=== PATIENT | male | born 1945 | race Caucasian/White ===

== ENCOUNTER 2017-10-30 09:32 | Outpatient (CLI) | payer MEDICARE, MEDICAID ==
--- NOTE | 2017-10-30 12:12 | CT ---
LOW DOSE SCREENING LUNG CT: Date: 10/30/17 COMPARISON: 04/25/16. HISTORY: Current smoker with a 60+ year history of smoking. COPD and shortness of breath. TECHNIQUE: Noncontrast low dose CT is performed following department protocol. FINDINGS: Lung-RADS Specific: Negative. Stable 4.0 mm nodule in the left upper lobe. Potential Significant Incidentals (Lung-RADS Category S): There is scarring in both upper lobes. The re is stable, slightly irregular nodules in the superior segment of the left lower lobe, unchanged. N odules measure 0.9 cm and 0.6 cm in maximum dimension. There has been no significant change when comp ared to the examination from April 2016. Other Incidentals: Coronary artery calcifications are identified. IMPRESSION: 1. Lung-RADS Category 1 - Negative. No evidence of primary lung cancer. Stable nodule in the left up per lobe. 2. Lung-RADS Category S - Scarring in both upper lobes with traction bronchiectasis and emphysematou s change. Stable nodules in the superior segment of the left lower lobe. RECOMMENDATION: 12 month follow-up low dose CT. POS: [facility]
== END 2017-10-30 09:33 | disposition home or self-care (01) ==
LOC: CT 09:32
PROVIDERS: ATTEND Family Medicine
DX: F17.210 Nicotine dependence, cigarettes, uncomplicated (principal); J47.9 Bronchiectasis, uncomplicated; R91.8 Other nonspecific abnormal finding of lung field; J98.4 Other disorders of lung
CPT/HCPCS: G0297

== ENCOUNTER 2018-10-09 19:07 | Inpatient (IN) | payer MEDICARE, MEDICAID ==
[2018-10-09] MEDS ORDERED: Azithromycin 500 MG VIAL ONE (19:36)
[2018-10-09] MEDS ORDERED: methylPREDNISolone Sod Succ/PF 125 MG/2 ML VIAL ONE ×2 (19:36→19:38)
[2018-10-09 19:44] LABS: #Basophils 0.1 thou/uL (0.0-0.2); #Eosinphils 0.2 thou/uL (0.0-0.7); #Lymphocytes 1.4 thou/uL (1.20-3.40); #Monocytes 1.3 thou/uL (0.11-0.59); #Neutrophils 8.9 thou/uL (1.40-6.50); %Basophils 0.7 % (0.0-1.0); %Lymphocytes 11.8 % (21.0-51.0); %Monocytes 11.1 % (0.0-10.0); %Neutrophils 74.4 % (42.0-75.0); Mean Corpuscular HGB CONC 31.2 g/dL (32.0-36.0); Mean Corpuscular Hemoglobin 28.5 pg (27.0-31.0); Mean Corpuscular Volume 91.4 fL (78.0-98.0); Mean Platelet Volume 8.5 fL (7.4-10.4); Platelet Count 189 thou/uL (130-400); RBC Distribution Width 13.4 % (11.5-14.5)
[2018-10-09 19:45] LABS: Actual Bicarbonate (HCO3a) 35.6 mEq/L (22-28); Analyzer IN Cardio ER; Base Excess (BEa) 8.2 mEq/L (-2.0 to +3.0); Carboxyhemoglobin (COHb) 1.3 gm% (0.0-3.0); Hemoglobin (Hb) 14.5 g/dL (14.0-18.0); O2 Tension (PaO2) 161.2 mmHg (> 70.0); pH, Arterial 7.38 (7.35-7.45)
[2018-10-09 20:13] LABS: ALT (SGPT) Less than 7 U/L (8-55); AST (SGOT) 12 U/L (5-34); Albumin 3.5 g/dL (3.4-4.8); Alkaline Phosphatase 57 U/L (40-150); Anion Gap 17 mmol/L (10-20); BUN (Urea Nitrogen) 17 mg/dL (8.4-25.7); Bilirubin, Total 0.4 mg/dL (0.2-1.2); Calc. Creatinine Clearance 0 mL/min (70-130); Carbon Dioxide 28 mmol/L (23-31); Chloride 99 mmol/L (98-107); Estimated GFR-MDRD 68; Globulin 2.9 g/dL (2.4-3.5); Glucose 160 mg/dL (83-110); Potassium 4.6 mmol/L (3.5-5.1); Protein, Total 6.4 g/dL (5.8-8.1); Sodium 139 mmol/L (136-145)
[2018-10-09 20:18] LABS: INR-International Normal Ratio 1.1; PTT 33.1 SEC (22.9-36.1); Prothrombin Time 14.3 SEC (12.0-14.7)
--- NOTE | 2018-10-09 20:33 | RAD ---
PORTABLE CHEST ONE VIEW: 10/09/18 at 7:37 p.m. HISTORY: Shortness of breath, dyspnea. FINDINGS/IMPRESSION: Comparison is made with the exam of 01/05/16. The heart size is normal. The lungs are expanded with bilateral chronic changes. There is suggestion of mild infiltrate in the right lower lung. No pneumothoraces or pleural effusions are identified. POS: [facility]
[2018-10-09] MEDS ORDERED: cefTRIAXone\\ROCEPHIN 1 GM VIAL ONE (22:39)
[2018-10-09 23:54] LABS: Puncture Site LRA
[2018-10-10] MEDS ORDERED: Ondansetron PF 4 MG/2 ML Vial IVP PRN (00:25)
[2018-10-10] MEDS ORDERED: Ondansetron ODT 4 MG TAB PO PRN (00:25)
[2018-10-10 02:20] VITALS: BMI 21.5
[2018-10-10 06:06] LABS: #Eosinphils 0.2 thou/uL (0.0-0.7); #Lymphocytes 0.5 thou/uL (1.20-3.40); #Monocytes 0.2 thou/uL (0.11-0.59); #Neutrophils 7.2 thou/uL (1.40-6.50); %Basophils 0.2 % (0.0-1.0); %Eosinophils 1.9 % (0.0-10.0); %Lymphocytes 6.3 % (21.0-51.0); %Monocytes 2.9 % (0.0-10.0); %Neutrophils 88.7 % (42.0-75.0); Mean Corpuscular HGB CONC 30.8 g/dL (32.0-36.0); Mean Corpuscular Hemoglobin 29.1 pg (27.0-31.0); Mean Corpuscular Volume 94.5 fL (78.0-98.0); Mean Platelet Volume 9.8 fL (7.4-10.4); Platelet Count 182 thou/uL (130-400); RBC Distribution Width 13.7 % (11.5-14.5); Red Blood Cell (RBC) Count 4.47 mill/uL (4.70-6.10); White Blood Cell (WBC) Count 8.1 thou/uL (4.8-10.8)
[2018-10-10 06:37] LABS: Chloride 103 mmol/L (98-107); Potassium 6.3 mmol/L (3.5-5.1); Sodium 134 mmol/L (136-145)
[2018-10-10 06:38] LABS: Calcium 8.9 mg/dL (7.8-10.44); Glucose 170 mg/dL (83-110)
[2018-10-10 06:40] LABS: Carbon Dioxide 19 mmol/L (23-31)
[2018-10-10 06:42] LABS: BUN (Urea Nitrogen) 20 mg/dL (8.4-25.7); Calc. Creatinine Clearance 57 mL/min (70-130); Estimated GFR-MDRD 71
[2018-10-10 07:14] LABS: Anion Gap 18 mmol/L (10-20)
--- NOTE | 2018-10-10 07:38 | HP ---
PRIMARY CARE DOCTOR: Rush Nicole DO CODE STATUS: Full code. TIME OF EVALUATION: 12:10 a.m. CHIEF COMPLAINT: Shortness of breath. HISTORY OF PRESENT ILLNESS: This is a 73-year-old male patient with past medical history of COPD, hernia, atherosclerosis, bilateral cataracts, came to the hospital after having severe shortness of breath. The patient presented in clear respiratory distress with a drop in saturation, needing BiPAP, and with improvement after initial treatment. The patient reported that he has a history of COPD, has no change in the medications, and he was not able to relieve his symptoms. The symptoms started gradually and got very severe, ended-up in respiratory failure. No clear triggers. No alleviating factors. REVIEW OF SYSTEMS: CONSTITUTIONAL: No fever, chills, or generalized weakness. RESPIRATORY: The patient have severe shortness of breath and cough. No sputum production. CARDIOVASCULAR: No chest pain or palpitation. GASTROINTESTINAL: No nausea, no vomiting, diarrhea, or abdominal pain. PILLOW CLEANER: No dizziness, headache, or feeling lightheaded. GENITOURINARY: No burning on urination. EXTREMITIES: No leg swelling. All other systems were reviewed and negative except for the findings mentioned above. PAST MEDICAL HISTORY: As mentioned in the HPI. PAST SURGICAL HISTORY: No surgical history. FAMILY HISTORY: Reviewed. Noncontributory for current presentation. ALLERGIES: TO PENICILLIN. REPORTED MEDICATIONS: 1. Indomethacin. 2. Xanax. 3. Prednisone. 4. Acetaminophen. 5. Daliresp. 6. Cetirizine. 7. Spiriva. 8. Symbicort. 9. Ventolin. 10. Albuterol. PHYSICAL EXAMINATION: VITAL SIGNS: On presentation, blood pressure 117/87, heart rate 128, and respiratory rate was 35. Pain was 0/10. Oxygen saturation was 100% on 3 L. GENERAL APPEARANCE: The patient is alert, oriented, in mild distress due to respiratory distress. HEENT: Eyes, normal conjunctiva. Moist oral mucosa. Anicteric. No JVD. RESPIRATORY: The patient has decreased bilateral air entry with wheezing, scattered rales. CARDIOVASCULAR: Tachycardic. No murmurs, no gallops. No edema. ABDOMEN: Soft. Normal bowel sounds. MUSCULOSKELETAL: Baseline range of motion. No sternal tenderness. SKIN: Warm, intact. No pallor. No rash. No redness. Peripheral pulses are present. Capillary refill seems to be intact. NEURO: No evidence of any new focal weakness. Baseline speech. Cranial nerves seem to be intact. PSYCH: The patient has good mood. No anxiety. Optimal judgment. IMAGING: EKG was reviewed. The patient has sinus tachycardia with some PACs, ventricular rate 132, WI 154, QRS 84, and QT corrected 436. Chest x-ray was reviewed. The patient has a suggestion of mild infiltrate in the right lower lobe. LABORATORY DATA: Labs were reviewed. The patient has white count 12, hemoglobin 14, MCV 91, and platelet count 189. PT 14.3, INR 1.1, and PTT 33. ABG showed pH 7.38 with pCO2 61, and oxygen 161. Chemistry: Sodium 139, potassium 4.6, chloride 99, carbon dioxide 28, anion gap 17, BUN 17, creatinine 1.0, GFR 68, and glucose 160. LFTs were negative. Troponin was negative. Beta-natriuretic peptide was negative. ASSESSMENT AND PLAN: The patient has been placed in the hospital with following medical problems: 1. Community acquired pneumonia seen on the chest x-ray. The patient has been started on broad-spectrum antibiotics. Follow cultures. Adjust treatment as needed. 2. Chronic obstructive pulmonary disease exacerbation. The patient has a possible history of chronic obstructive pulmonary disease. The patient was started on nebs, antibiotics, and steroids, also with oxygen support. The patient was hypoxic at home. 3. Acute hypoxic respiratory failure. Oxygen saturation was in the 80s, has improved initially with BiPAP, and then with nasal cannula. Secondary to pneumonia. We will treat underlying condition. 4. Deep vein thrombosis prophylaxis. 5. Risk assessment, high risk due to acute hypoxic respiratory failure. Job ID: [id number]
[2018-10-10 08:47] LABS: Potassium 4.6 mmol/L (3.5-5.1)
[2018-10-10] MEDS: Enoxaparin Sodium 40 MG/0.4 ML SYRINGE SC SCH (08:51)
[2018-10-10] MEDS ORDERED: Spiriva 18 MCG CAP (Box of 5 Caps) INH SCH (09:00)
[2018-10-10] MEDS: Mometasone/Formoterol 120 PUFF INHALER INH SCH ×2 (11:44→18:46)
[2018-10-10] MEDS ORDERED: methylPREDNISolone Sod Succ 40 MG VIAL IVP SCH ×4 (12:00→18:00)
[2018-10-10] MEDS ORDERED: Bacteriostatic Water 30 ML VIAL FS PRN ×2 (12:51→14:40)
--- NOTE | 2018-10-10 13:07 | PDOC.EVN ---
Event Note - Event Note Event Note: Pt seen and examined. Chart reviewed in detail Feels a little better. took his home meds this morning. Reports he used to see DR. Salcido. trying to quit smoking.down to 3-4 cigarettes a week lungs w minimal wheezing but coarse sounds CXR ? PNA.H/O sick contacts cont ABx, IV steroids, Nebs. Add Dulera. Restart Roflumilast and spiriva Check NAAT for resp Viral panel Will follow
[2018-10-10] MEDS: ALPRAZolam 1 MG TAB PO PRN ×2 (13:39→19:46)
[2018-10-10] MEDS ORDERED: Levalbuterol HCl 0.63 MG/3 ML NEB NEB SCH (15:00)
--- NOTE | 2018-10-10 17:22 | CON ---
DATE OF CONSULTATION: HISTORY OF PRESENT ILLNESS: Mr. Campuzano is a very pleasant 73-year-old male. I know him for some time. He has never been able to quit smoking, but he is down to a cigarette every three days he says. He presented with a week of progressive dyspnea on exertion and dyspnea at rest. Subsequently, he has been admitted to the hospital. PAST MEDICAL HISTORY: 1. Remarkable for chronic obstructive lung disease. 2. History of vascular disease. 3. History of cataracts. 4. History of herniorrhaphy in the past. ALLERGIES: REPORTS AN ALLERGY TO PENICILLIN. MENTIONED, HE IS STILL SMOKING CIGARETTE EVERY THREE DAYS. FAMILY HISTORY: Negative for lung disease in early age. REVIEW OF SYSTEMS: Otherwise negative. He denies weight loss, hemoptysis, or chest pain. He says he is feeling a little better, but he is not back to his baseline. His family very quickly points out that he is not back to his baseline. He denies hemoptysis. The remainder of his review of systems is negative. PHYSICAL EXAMINATION: GENERAL: He is in no distress, speaking in complete sentences, but if he talks long enough he does get a little winded. VITAL SIGNS: He is afebrile. Heart rate is 116, respiratory rate in the 20s, oximetry is 99 on 2 L, blood pressure is 112/65. HEENT: Pupils are equal and reactive. Sclerae anicteric. Extraocular movements are full. NECK: Supple. No lymphadenopathy. LUNGS: Clear and distant with a prolonged expiratory phase. HEART: Regular rhythm. S1 and S2 are normal. ABDOMEN: Soft and nontender. EXTREMITIES: Without clubbing, cyanosis or edema. LABORATORY DATA: White count 8.1, hemoglobin 13, platelets 182,000. Sodium 134 , potassium 6.3, chloride 103, bicarb 19, BUN 20, creatinine 1.03. Repeat potassium was 4.6. I suspect this is hemolyzed. Blood gas yesterday 7.38, CO2 61, PO2 161. Chest radiograph is a little hazy at the right base, but this could be secondary to mucus plugging. IMPRESSION: 1. Chronic obstructive pulmonary disease exacerbation. 2. Possible community-acquired pneumonia. 3. Hyperkalemia that on repeat lab was not confirmed. 4. He can be switched to p.o. antibiotics. 5. He will continue nebulized treatments every 4 hours. 6. Tachycardia secondary to chronic obstructive pulmonary disease exacerbation, not because of the albuterol, so there is no evidence to show that Xopenex is better , especially at the pediatric dose of 0.63 mg. I would switch him back to DuoNeb and just do that q.4 while awake. Continue with IV steroids. 7. Congratulating him on his success and cutting back on his tobacco use. I will follow him while he is in the hospital and be happy to see him in my office. I met with the family and answered all of their questions. 50 minute consult with 50% of time on unit coordinating care Job ID: [id number] CHELA
[2018-10-10] MEDS: cefTRIAXone\\ROCEPHIN 1 GM in Sodium Chloride 0.9% 100 ML IVPB SCH (17:28)
[2018-10-10] MEDS: Azithromycin 500 MG in Sodium Chloride 0.9% 250 ML 250 ML IVPB SCH (18:14)
[2018-10-10] MEDS: methylPREDNISolone Sod Succ 40 MG VIAL IVP SCH (20:57)
[2018-10-11] MEDS: ALPRAZolam 1 MG TAB PO PRN ×4 (01:20→22:38)
[2018-10-11 06:09] LABS: #Lymphocytes 0.8 thou/uL (1.20-3.40); #Monocytes 0.5 thou/uL (0.11-0.59); #Neutrophils 7.8 thou/uL (1.40-6.50); %Basophils 0.3 % (0.0-1.0); %Eosinophils 0.2 % (0.0-10.0); %Lymphocytes 8.3 % (21.0-51.0); %Monocytes 5.8 % (0.0-10.0); %Neutrophils 85.5 % (42.0-75.0); Hemoglobin 12.3 g/dL (14.0-18.0); Mean Corpuscular HGB CONC 31.2 g/dL (32.0-36.0); Mean Corpuscular Hemoglobin 28.8 pg (27.0-31.0); Mean Corpuscular Volume 92.3 fL (78.0-98.0); Mean Platelet Volume 9.3 fL (7.4-10.4); Platelet Count 178 thou/uL (130-400); RBC Distribution Width 13.4 % (11.5-14.5); Red Blood Cell (RBC) Count 4.27 mill/uL (4.70-6.10); White Blood Cell (WBC) Count 9.1 thou/uL (4.8-10.8)
[2018-10-11 06:21] LABS: Anion Gap 16 mmol/L (10-20); BUN (Urea Nitrogen) 17 mg/dL (8.4-25.7); Calc. Creatinine Clearance 63 mL/min (70-130); Calcium 8.6 mg/dL (7.8-10.44); Carbon Dioxide 23 mmol/L (23-31); Chloride 102 mmol/L (98-107); Estimated GFR-MDRD 78; Glucose 174 mg/dL (83-110); Potassium 4.8 mmol/L (3.5-5.1); Sodium 136 mmol/L (136-145)
[2018-10-11] MEDS: Mometasone/Formoterol 120 PUFF INHALER INH SCH ×2 (08:01→19:11)
[2018-10-11] MEDS: methylPREDNISolone Sod Succ 40 MG VIAL IVP SCH ×2 (08:42→22:38)
[2018-10-11] MEDS: Enoxaparin Sodium 40 MG/0.4 ML SYRINGE SC SCH (08:43)
--- NOTE | 2018-10-11 12:15 | PDOC.PN ---
- Subjective Encounter Start Date: 10/11/18 Encounter Start Time: 12:14 Subjective: feels much better. had a coughing spell this morning and brought up yellow -: phlegmn - Objective Resuscitation Status - Order Detail: 10/10/18 00:25 Resuscitation Status Routine Resuscitation Status: FULL: Full Resuscitation MAR Reviewed: Yes Vital Signs & Weight: Vital Signs (12 hours) Temp Pulse Resp BP Pulse Ox 10/11/18 11:56 97.5 F L 82 20 123/64 98 10/11/18 11:39 81 16 10/11/18 08:01 65 16 10/11/18 08:00 97.5 F L 75 16 122/72 99 10/11/18 07:50 94 L 10/11/18 07:48 91 L 10/11/18 07:46 65 24 H 10/11/18 04:00 97.6 F 94 16 135/80 92 L 10/11/18 02:10 71 18 92 L Weight Weight 141 lb 11.2 oz I&O: 10/10/18 10/11/18 10/12/18 06:59 06:59 06:59 Intake Total 360 1860 300 Output Total 2400 500 Balance 360 -540 -200 Result Diagrams: 10/11/18 05:29 10/11/18 05:29 Additional Labs: Microbiology 10/10/18 12:35 Nasopharyngeal swab Respiratory Virus Panel (PCR) - Final Phys Exam - Physical Examination Constitutional: NAD HEENT: PERRLA, moist MMs, sclera anicteric, oral pharynx no lesions Neck: no nodes, no JVD, supple, full ROM Respiratory: no wheezing, no rales, no rhonchi, clear to auscultation bilateral Cardiovascular: RRR, no significant murmur Gastrointestinal: soft, non-tender, no distention, positive bowel sounds Musculoskeletal: no edema, pulses present Neurological: non-focal, normal sensation, moves all 4 limbs Psychiatric: normal affect, A&O x 3 Skin: no rash Dx/Plan (1) COPD exacerbation Code(s): J44.1 - CHRONIC OBSTRUCTIVE PULMONARY DISEASE W (ACUTE) EXACERBATION Status: Acute (2) CAP (community acquired pneumonia) Code(s): J18.9 - PNEUMONIA, UNSPECIFIED ORGANISM Status: Acute Qualifiers: Laterality: right (3) Tobacco abuse Code(s): Z72.0 - TOBACCO USE Status: Chronic - Plan continue antibiotics, PT/OT, respiratory therapy, incentive spirometry, out of bed/ambulate, DVT proph w/lovenox, DVT proph w/SCDs clinically better. wheezing minimal.add mucinex for mucolytic efects -: cont ABx and nebs as ordered -: NAAT +ve for rhinovirus. follow Cx results. -ve so far -: HD stable. * . Review of Systems - Review of Systems Constitutional: weakness. negative: fever, chills, sweats, malaise, other Respiratory: Cough, SOB with Excertion, Wheezing. negative: Dry, Shortness of Breath, Hemoptysis, Pleuritic Pain, Sputum Cardiovascular: negative: chest pain, palpitations, orthopnea, paroxysmal nocturnal dyspnea, edema, light headedness, other Gastrointestinal: negative: Nausea, Vomiting, Abdominal Pain, Diarrhea, Constipation, Melena, Hematochezia, Other Genitourinary: negative: Dysuria, Frequency, Incontinence, Hematuria, Retention , Other Musculoskeletal: negative: Neck Pain, Shoulder Pain, Arm Pain, Back Pain, Hand Pain, Leg Pain, Foot Pain, Other Neurological: negative: Weakness, Numbness, Incoordination, Change in Speech, Confusion, Seizures, Other - Medications/Allergies Allergies/Adverse Reactions: Allergies Allergy/AdvReac Type Severity Reaction Status Date / Time Penicillins Allergy Verified 10/10/18 02:46 Medications: Current Medications Acetaminophen (Tylenol) 650 mg PO Q4H PRN PRN Reason: Headache/Fever/Mild Pain (1-3) Albuterol/Ipratropium (Duoneb) 3 ml NEB [id number] [facility] Last Admin: 10/11/18 11:39 Dose: 3 ml Alprazolam (Xanax) 1 mg PO QIDPRN PRN PRN Reason: Anxiety Last Admin: 10/11/18 08:43 Dose: 1 mg Enoxaparin Sodium (Lovenox) 40 mg SC 0900 [facility] Last Admin: 10/11/18 08:43 Dose: 40 mg Guaifenesin (Mucinex) 600 mg PO Q12HR [facility] Azithromycin 500 mg/ Sodium (Chloride) 250 mls @ 250 mls/hr IVPB Q24HR [facility] Last Admin: 10/10/18 18:14 Dose: 250 mls Ceftriaxone Sodium 1 gm/ (Sodium Chloride) 100 mls @ 200 mls/hr IVPB Q24HR [facility] Last Admin: 10/10/18 17:28 Dose: 100 mls Methylprednisolone Sodium Succinate (Solu-Medrol) 40 mg IVP Q12HR [facility] Last Admin: 10/11/18 08:42 Dose: 40 mg Mometasone Furoate/Formoterol Fumar (Dulera 200 Mcg/5 Mcg Inhaler) 1 puff INH BID-RT [facility] Last Admin: 10/11/18 08:01 Dose: 1 puff Non-Formulary Item 1 (Each Daliresp) 1 each FS DAILY [facility] Ondansetron HCl (Zofran Odt) 4 mg PO Q6H PRN PRN Reason: Nausea/Vomiting Ondansetron HCl (Zofran) 4 mg IVP Q6H PRN PRN Reason: Nausea/Vomiting Sterile Water (Bacteriostatic Water) 1 ml FS PRN PRN PRN Reason: RECONSTITUTION
[2018-10-11] MEDS ORDERED: guaiFENesin ER 600 MG TAB PO SCH ×2 (12:30→21:00)
[2018-10-11] MEDS ORDERED: Magnesium 2 GM/50 ML 2 GM in Premix Bag 1 BAG IVPB SCH (14:30)
[2018-10-11] MEDS: Sodium Chloride 0.45% 1,000 ML IV SCH (14:59)
[2018-10-11] MEDS: Azithromycin 500 MG in Sodium Chloride 0.9% 250 ML 250 ML IVPB SCH (17:08)
[2018-10-11] MEDS: cefTRIAXone\\ROCEPHIN 1 GM in Sodium Chloride 0.9% 100 ML IVPB SCH (18:31)
--- NOTE | 2018-10-11 18:33 | PRG ---
DATE OF SERVICE: 10/11/2018 OBJECTIVE: VITAL SIGNS: Afebrile. Heart rates in the 80s. He moves around and gets tachycardic, tachypneic. Respiratory rate is 20, oximetry is 94%, and blood pressure 120/69. He states he did not feel any better than he did yesterday. LUNGS: Still remarkable for diffuse wheezes. HEART: Regular rhythm. ABDOMEN: Soft and nontender. EXTREMITIES: Without clubbing, cyanosis or edema. LABORATORY DATA: White count 9.1, hemoglobin 12.3, and platelets 178,000. Electrolytes are unremarkable. IMPRESSION AND PLAN: Chronic obstructive pulmonary disease exacerbation, stable, but not improving. He needs more hydration, increased dose of guaifenesin, and a dose of magnesium. Hopefully, we will see some improvement here in 24 to 48 hours. He is no where near ready to go home. Job ID: [id number]
[2018-10-11] MEDS: guaiFENesin ER 600 MG TAB PO SCH (22:38)
[2018-10-12] MEDS: Sodium Chloride 0.45% 1,000 ML IV SCH ×2 (06:19→21:23)
[2018-10-12] MEDS: Mometasone/Formoterol 120 PUFF INHALER INH SCH ×2 (07:32→18:17)
[2018-10-12] MEDS: ALPRAZolam 1 MG TAB PO PRN ×4 (07:43→21:24)
[2018-10-12] MEDS: guaiFENesin ER 600 MG TAB PO SCH ×2 (07:43→21:24)
[2018-10-12] MEDS: methylPREDNISolone Sod Succ 40 MG VIAL IVP SCH ×2 (09:18→16:39)
[2018-10-12] MEDS: Enoxaparin Sodium 40 MG/0.4 ML SYRINGE SC SCH (09:18)
--- NOTE | 2018-10-12 10:46 | PDOC.PN ---
- Subjective Encounter Start Date: 10/12/18 Encounter Start Time: 10:44 Subjective: improved sob, etc - Objective Resuscitation Status - Order Detail: 10/10/18 00:25 Resuscitation Status Routine Resuscitation Status: FULL: Full Resuscitation Vital Signs & Weight: Vital Signs (12 hours) Temp Pulse Resp BP Pulse Ox 10/12/18 07:37 98.6 F 61 18 139/82 99 10/12/18 07:32 85 16 10/12/18 07:19 91 L 10/12/18 07:16 85 16 10/12/18 04:00 97.5 F L 68 20 144/74 H 96 10/12/18 02:25 80 16 93 L Weight Weight 141 lb 11.2 oz I&O: 10/11/18 10/12/18 10/13/18 06:59 06:59 06:59 Intake Total 1860 2657 Output Total 2400 1725 Balance -540 932 Result Diagrams: 10/11/18 05:29 10/11/18 05:29 Phys Exam - Physical Examination Neck: no JVD hyperresonant BS, prolonged exp phase, non-focal Cardiovascular: RRR, no significant murmur Gastrointestinal: soft, positive bowel sounds Musculoskeletal: no edema Dx/Plan (1) Acute respiratory failure with hypoxia and hypercapnia Code(s): J96.01 - ACUTE RESPIRATORY FAILURE WITH HYPOXIA; J96.02 - ACUTE RESPIRATORY FAILURE WITH HYPERCAPNIA Status: Acute (2) CAP (community acquired pneumonia) Code(s): J18.9 - PNEUMONIA, UNSPECIFIED ORGANISM Status: Acute Qualifiers: Laterality: right Lung location: lower lobe of lung Qualified Code(s): J18.1 - Lobar pneumonia, unspecified organism (3) COPD exacerbation Code(s): J44.1 - CHRONIC OBSTRUCTIVE PULMONARY DISEASE W (ACUTE) EXACERBATION Status: Acute (4) Tobacco abuse Code(s): Z72.0 - TOBACCO USE Status: Chronic - Plan taper iv steroids -: cont nebs, antibx, O2 * .
--- NOTE | 2018-10-12 11:05 | PRG ---
DATE OF SERVICE: 10/12/2018 OBJECTIVE: VITAL SIGNS: Mr. Campuzano is afebrile. Heart rate in the 80s, respiratory rate 17, oximetry is 91 on 2 L cannula. LUNGS: Remarkable for diffuse wheezes. HEART: Regular rhythm. ABDOMEN: Soft. He says he feels a tiny bit better. LABORATORY DATA: No new lab today. IMPRESSION: 1. Chronic obstructive pulmonary disease exacerbation with bronchitis, slowly improving. 2. Tobacco use up until this admission, although he is only smoking one cigarette every 3 days. 3. We will continue with IV hydration, guaifenesin. Perhaps magnesium helps a little. He is not ready for discharge. He did have an echocardiogram, which was of poor quality, but it was guesstimated that his ejection fraction was normal. We will evaluate him again in the morning. Job ID: [id number]
[2018-10-12] MEDS: Acetaminophen 325 MG TAB PO PRN (14:05)
[2018-10-12] MEDS: Azithromycin 500 MG in Sodium Chloride 0.9% 250 ML 250 ML IVPB SCH (15:10)
[2018-10-12] MEDS: cefTRIAXone\\ROCEPHIN 1 GM in Sodium Chloride 0.9% 100 ML IVPB SCH (16:39)
[2018-10-13] MEDS: Artificial Tear Sol 15 ML BOT EA EYE PRN ×3 (01:42→16:55)
[2018-10-13] MEDS: methylPREDNISolone Sod Succ 40 MG VIAL IVP SCH ×3 (01:43→18:17)
[2018-10-13] MEDS: ALPRAZolam 1 MG TAB PO PRN ×4 (04:10→21:45)
[2018-10-13] MEDS: Mometasone/Formoterol 120 PUFF INHALER INH SCH ×2 (06:22→18:46)
--- NOTE | 2018-10-13 08:46 | PDOC.PN ---
- Subjective Encounter Start Date: 10/13/18 Encounter Start Time: 08:44 Subjective: cough persists, sob improving - Objective Resuscitation Status - Order Detail: 10/10/18 00:25 Resuscitation Status Routine Resuscitation Status: FULL: Full Resuscitation MAR Reviewed: Yes Vital Signs & Weight: Vital Signs (12 hours) Temp Pulse Resp BP Pulse Ox 10/13/18 07:45 98.4 F 71 24 H 153/72 H 92 L 10/13/18 06:22 88 16 95 10/13/18 06:20 88 16 95 10/13/18 04:00 97.8 F 75 16 136/77 93 L 10/13/18 02:32 85 16 95 10/13/18 00:00 97.5 F L 83 16 149/78 H 94 L 10/12/18 22:32 87 16 95 Weight Weight 141 lb 11.2 oz I&O: 10/12/18 10/13/18 10/14/18 06:59 06:59 06:59 Intake Total 2657 2603 Output Total 1725 1550 Balance 932 1053 Result Diagrams: 10/11/18 05:29 10/11/18 05:29 Phys Exam - Physical Examination Neck: no JVD decreased BS, non-focal Cardiovascular: RRR, no significant murmur Gastrointestinal: soft, positive bowel sounds Musculoskeletal: no edema Dx/Plan (1) Acute respiratory failure with hypoxia and hypercapnia Code(s): J96.01 - ACUTE RESPIRATORY FAILURE WITH HYPOXIA; J96.02 - ACUTE RESPIRATORY FAILURE WITH HYPERCAPNIA Status: Acute (2) CAP (community acquired pneumonia) Code(s): J18.9 - PNEUMONIA, UNSPECIFIED ORGANISM Status: Acute Qualifiers: Laterality: right Lung location: lower lobe of lung Qualified Code(s): J18.1 - Lobar pneumonia, unspecified organism (3) COPD exacerbation Code(s): J44.1 - CHRONIC OBSTRUCTIVE PULMONARY DISEASE W (ACUTE) EXACERBATION Status: Acute (4) Tobacco abuse Code(s): Z72.0 - TOBACCO USE Status: Chronic - Plan discuss with pulmonology -: probable deescalate antibx to po -: cont steroide, LABA, duoneb * .
[2018-10-13] MEDS: guaiFENesin ER 600 MG TAB PO SCH ×2 (10:00→21:45)
[2018-10-13] MEDS: Enoxaparin Sodium 40 MG/0.4 ML SYRINGE SC SCH (10:00)
[2018-10-13] MEDS: Acetaminophen 325 MG TAB PO PRN ×2 (11:04→16:48)
[2018-10-13] MEDS: Sodium Chloride 0.45% 1,000 ML IV SCH (13:05)
[2018-10-13] MEDS: cefTRIAXone\\ROCEPHIN 1 GM in Sodium Chloride 0.9% 100 ML IVPB SCH (16:48)
[2018-10-13] MEDS: Azithromycin 500 MG in Sodium Chloride 0.9% 250 ML 250 ML IVPB SCH (18:19)
--- NOTE | 2018-10-13 18:35 | PRG ---
DATE OF SERVICE: 10/13/2018 SUBJECTIVE: Hank Campuzano says he feels a little bit better, but he is still not ready to go home. OBJECTIVE: VITAL SIGNS: He is afebrile, heart rate is in the 90s, respiratory rate is 18, oximetry is 95% on 2 L, and blood pressure 140/94. GENERAL: He has an IV in his right lower extremity, so I have recommended that we will remove this. LUNGS: Still remarkable for wheezes. HEART: Regular rhythm. ABDOMEN: Soft. IMPRESSION: Chronic obstructive pulmonary disease exacerbation, still improving. PLAN: Switch to p.o. med. Stop the IV fluids. Continue the other medications. Continue to increase his activity. Job ID: [id number]
[2018-10-13] MEDS: Cefdinir 300 MG CAP PO SCH (21:45)
[2018-10-13] MEDS: DALIRESP FS SCH ×3 (23:32→23:35)
[2018-10-14] MEDS: Mometasone/Formoterol 120 PUFF INHALER INH SCH ×2 (06:59→18:48)
--- NOTE | 2018-10-14 08:35 | PDOC.PN ---
- Subjective Encounter Start Date: 10/14/18 Encounter Start Time: 08:34 Subjective: stronger, sob, cont to improve - Objective Resuscitation Status - Order Detail: 10/10/18 00:25 Resuscitation Status Routine Resuscitation Status: FULL: Full Resuscitation MAR Reviewed: Yes Vital Signs & Weight: Vital Signs (12 hours) Temp Pulse Resp BP Pulse Ox 10/14/18 07:46 97.6 F 72 16 166/90 H 93 L 10/14/18 06:59 60 14 10/14/18 04:00 97.7 F 62 19 153/90 H 92 L 10/14/18 02:19 92 20 95 10/14/18 00:00 98.0 F 113 H 19 158/73 H 92 L 10/13/18 22:08 91 20 96 Weight Weight 141 lb 11.2 oz I&O: 10/13/18 10/14/18 10/15/18 06:59 06:59 06:59 Intake Total 2603 1886 Output Total 1550 1550 Balance 1053 336 Result Diagrams: 10/11/18 05:29 10/11/18 05:29 Phys Exam - Physical Examination Neck: no JVD Respiratory: clear to auscultation bilateral Cardiovascular: RRR, no significant murmur Gastrointestinal: soft, positive bowel sounds Musculoskeletal: no edema Dx/Plan (1) Acute respiratory failure with hypoxia and hypercapnia Code(s): J96.01 - ACUTE RESPIRATORY FAILURE WITH HYPOXIA; J96.02 - ACUTE RESPIRATORY FAILURE WITH HYPERCAPNIA Status: Acute (2) CAP (community acquired pneumonia) Code(s): J18.9 - PNEUMONIA, UNSPECIFIED ORGANISM Status: Acute Qualifiers: Laterality: right Lung location: lower lobe of lung Qualified Code(s): J18.1 - Lobar pneumonia, unspecified organism (3) COPD exacerbation Code(s): J44.1 - CHRONIC OBSTRUCTIVE PULMONARY DISEASE W (ACUTE) EXACERBATION Status: Acute (4) Tobacco abuse Code(s): Z72.0 - TOBACCO USE Status: Chronic - Plan transition to po meds, probable DC in AM 10/15 -: on prednisone, nebs, LABA * .
[2018-10-14] MEDS: Enoxaparin Sodium 40 MG/0.4 ML SYRINGE SC SCH (08:38)
[2018-10-14] MEDS: Cefdinir 300 MG CAP PO SCH ×2 (08:39→22:29)
[2018-10-14] MEDS: predniSONE 20 MG TAB PO SCH (08:39)
[2018-10-14] MEDS: Fluorometholone 0.1% Ophth Soln 5 ml Bottle EA EYE SCH ×2 (08:39→22:30)
[2018-10-14] MEDS: guaiFENesin ER 600 MG TAB PO SCH ×2 (08:39→22:30)
[2018-10-14] MEDS: ALPRAZolam 1 MG TAB PO PRN ×3 (08:54→17:49)
[2018-10-14] MEDS: Acetaminophen 325 MG TAB PO PRN ×2 (09:16→17:49)
--- NOTE | 2018-10-14 20:40 | PRG ---
DATE OF SERVICE: 10/14/2018 SUBJECTIVE: He says he feels a tiny bit better. He does not think he is ready to go home. OBJECTIVE: VITAL SIGNS: He is afebrile. Heart rate is between 74 and 114 today, respiratory rate 16, oximetry is 93% on 3 L, and blood pressure 135/90. LUNGS: Remarkable for distant wheezes. HEART: Regular rhythm. ABDOMEN: Soft. He has walked in the [place] when he walking. LABORATORY DATA: White count is 9.1, hemoglobin 12.3, and platelets 178 three days ago. No recent lab. IMPRESSION: 1. Chronic obstructive pulmonary disease exacerbation. 2. Tobacco use up until this admission. PLAN: The theophylline, I know this would not help quickly, but hopefully over the next month, it will help with his respiratory status and it is much less expensive than Daliresp. See him again in the morning. Job ID: [id number]
[2018-10-15] MEDS: ALPRAZolam 1 MG TAB PO PRN ×4 (00:22→17:56)
[2018-10-15] MEDS: Mometasone/Formoterol 120 PUFF INHALER INH SCH ×2 (06:54→20:10)
[2018-10-15] MEDS: Fluorometholone 0.1% Ophth Soln 5 ml Bottle EA EYE SCH ×2 (08:26→22:24)
[2018-10-15] MEDS: Enoxaparin Sodium 40 MG/0.4 ML SYRINGE SC SCH (08:26)
[2018-10-15] MEDS: Cefdinir 300 MG CAP PO SCH ×2 (08:27→22:24)
[2018-10-15] MEDS: predniSONE 20 MG TAB PO SCH (08:27)
[2018-10-15] MEDS: Acetaminophen 325 MG TAB PO PRN ×4 (08:28→22:25)
[2018-10-15] MEDS: guaiFENesin ER 600 MG TAB PO SCH ×2 (08:28→22:25)
--- NOTE | 2018-10-15 08:28 | PDOC.PN ---
- Subjective Encounter Start Date: 10/15/18 Encounter Start Time: 08:27 Subjective: anxious, doesnt want to go home - Objective Resuscitation Status - Order Detail: 10/10/18 00:25 Resuscitation Status Routine Resuscitation Status: FULL: Full Resuscitation MAR Reviewed: Yes Vital Signs & Weight: Vital Signs (12 hours) Temp Pulse Resp BP Pulse Ox 10/15/18 08:00 97.6 F 79 24 H 170/91 H 91 L 10/15/18 06:54 70 16 10/15/18 04:00 97.5 F L 66 16 161/83 H 99 10/15/18 02:32 62 14 95 10/15/18 00:00 97.6 F 79 16 147/78 H 98 10/14/18 22:13 64 16 94 L 10/14/18 20:30 92 L Weight Weight 141 lb 11.2 oz I&O: 10/14/18 10/15/18 10/16/18 06:59 06:59 06:59 Intake Total 1886 1741 Output Total 1550 3125 Balance 336 -1384 Result Diagrams: 10/11/18 05:29 10/11/18 05:29 Phys Exam - Physical Examination Neck: no JVD vesicular, non-focal Cardiovascular: RRR, no significant murmur Gastrointestinal: soft, positive bowel sounds Musculoskeletal: no edema Dx/Plan (1) Acute respiratory failure with hypoxia and hypercapnia Code(s): J96.01 - ACUTE RESPIRATORY FAILURE WITH HYPOXIA; J96.02 - ACUTE RESPIRATORY FAILURE WITH HYPERCAPNIA Status: Acute (2) CAP (community acquired pneumonia) Code(s): J18.9 - PNEUMONIA, UNSPECIFIED ORGANISM Status: Acute Qualifiers: Laterality: right Lung location: lower lobe of lung Qualified Code(s): J18.1 - Lobar pneumonia, unspecified organism (3) COPD exacerbation Code(s): J44.1 - CHRONIC OBSTRUCTIVE PULMONARY DISEASE W (ACUTE) EXACERBATION Status: Acute (4) Tobacco abuse Code(s): Z72.0 - TOBACCO USE Status: Chronic - Plan cont nebs, LABA, prednisone -: chronic home O2, has home nebulizer -: discuss with pulmonology * .
--- NOTE | 2018-10-15 20:26 | PRG ---
DATE OF SERVICE: 10/15/2018 SUBJECTIVE: Hank Campuzano says he feels a tiny bit better, but not much. He is extremely dyspneic, walking to the bathroom. Sometimes he has walked to the bathroom time. Sometimes he has used the bedside commode or urinal. OBJECTIVE: VITAL SIGNS: Afebrile, heart rate 74, respiratory rate 16, oximetry is 92, and blood pressure 127/78. LUNGS: Distant with faint wheezes. HEART: Regular rhythm. ABDOMEN: Soft. LABORATORY DATA: He has not had labs since . IMPRESSION: 1. Chronic obstructive pulmonary disease exacerbation. 2. Deconditioning. I suspect deconditioning is more with factor now than the chronic obstructive pulmonary disease, some p.o. steroids and p.o. antibiotics. He could be discharged. He is not stable on his feet to go home. I have talked to the sample case porter. I have recommended placement to a skilled facility. He is agreeable that. Job ID: [id number]
[2018-10-16] MEDS: ALPRAZolam 1 MG TAB PO PRN ×4 (05:44→22:21)
[2018-10-16] MEDS: Acetaminophen 325 MG TAB PO PRN ×4 (06:45→22:21)
[2018-10-16] MEDS: Enoxaparin Sodium 40 MG/0.4 ML SYRINGE SC SCH (08:31)
[2018-10-16] MEDS: Fluorometholone 0.1% Ophth Soln 5 ml Bottle EA EYE SCH ×2 (08:31→20:38)
[2018-10-16] MEDS: predniSONE 20 MG TAB PO SCH (08:32)
[2018-10-16] MEDS: guaiFENesin ER 600 MG TAB PO SCH ×2 (08:32→20:38)
[2018-10-16] MEDS: Cefdinir 300 MG CAP PO SCH ×2 (08:32→20:38)
[2018-10-16] MEDS: Mometasone/Formoterol 120 PUFF INHALER INH SCH ×2 (08:42→18:54)
--- NOTE | 2018-10-16 11:17 | PRG ---
DATE OF SERVICE: 10/16/2018 SUBJECTIVE: Hank Campuzano'yaniv all practical purposes are back to his baseline except for muscle weakness. OBJECTIVE: VITAL SIGNS: He is afebrile. Heart rate 66 to 102, respiratory rate is 20, oximetry is 90 on 3 L, and blood pressure 158/85. LUNGS: Clear today. HEART: Regular rhythm. ABDOMEN: Soft and nontender. EXTREMITIES: Without edema. LABORATORY DATA: He has no recent lab. IMPRESSION: Chronic obstructive pulmonary disease exacerbation. He is stable to go to some type of rehab facility and is willing to go into rehab. We will continue his nebulized treatments, prednisone 40 mg a day, theophylline 400 mg a day, and Omnicef. Job ID: [id number]
--- NOTE | 2018-10-16 12:04 | PDOC.EVN ---
Event Note - Event Note Event Note: DC SUMMARY #[id number]
--- NOTE | 2018-10-16 12:32 | DIS ---
DATE OF ADMISSION: 10/10/2018 DATE OF DISCHARGE: 10/16/2018 ADMITTING DIAGNOSES: 1. Shortness of breath. 2. Chronic obstructive pulmonary disease. 3. Hypertension. 4. Asthma. 5. Anxiety. DISCHARGE DIAGNOSES: 1. Shortness of breath, resolved. 2. Asthma and chronic obstructive pulmonary disease, stable. 3. Hypertension, stable. 4. Anxiety, stable. HOSPITAL COURSE: This is a 73-year-old male, admitted to Internal Medicine team also seen by Pulmonary, had intravesical steroids started, DuoNebs as needed, and an echocardiogram performed. Echocardiogram showed normal cardiac function with ejection fraction of 50% to 55% with normal right ventricular pressures. The patient had proper symptomatic improvement throughout his stay at the hospital, was cleared at time of discharge by Pulmonary and Internal Medicine to go to custodial facility for pulmonary rehabilitation and improvement and then transitioned back to home. The patient was advised to follow up with PCP and Pulmonary within 1 to 2 weeks post discharge. Take all medications as directed. Keep all appointments as requested and follow a low-fat low-calorie high-fiber diet. CONDITION: Stable. PROGNOSIS: Good. MEDICATIONS: See MAR. ACTIVITY: As tolerated with assistance as needed. FOLLOWUP: Follow up with PCP and Pulmonary in 1 to 2 weeks. Case and plan discussed the patient at length. He understood and agreed with this plan. Job ID: [id number]
[2018-10-17] MEDS: ALPRAZolam 1 MG TAB PO PRN ×2 (05:39→12:55)
[2018-10-17] MEDS: Acetaminophen 325 MG TAB PO PRN ×2 (05:39→12:55)
[2018-10-17] MEDS: Mometasone/Formoterol 120 PUFF INHALER INH SCH (06:38)
[2018-10-17] MEDS: Enoxaparin Sodium 40 MG/0.4 ML SYRINGE SC SCH (08:48)
[2018-10-17] MEDS: Cefdinir 300 MG CAP PO SCH (08:49)
[2018-10-17] MEDS: Fluorometholone 0.1% Ophth Soln 5 ml Bottle EA EYE SCH (08:49)
[2018-10-17] MEDS: guaiFENesin ER 600 MG TAB PO SCH (08:51)
[2018-10-17] MEDS: predniSONE 20 MG TAB PO SCH (08:51)
[2018-10-17 11:44] VITALS: BP 131/73; TEMP 97.6
== END 2018-10-17 13:21 | disposition home or self-care (01) | DRG 193 ==
LOC: ERS 19:07 → 2SE 22:10 → OBSVTOIN 10-10 06:04
PROVIDERS: ADMIT Hospitalist; ATTEND Hospitalist
DX: J18.9 Pneumonia, unspecified organism (principal); J96.01 Acute respiratory failure with hypoxia; J96.02 Acute respiratory failure with hypercapnia; J44.1 Chronic obstructive pulmonary disease with (acute) exacerbation; J44.0 Chronic obstructive pulmonary disease with (acute) lower respiratory infection; Z72.0 Tobacco use; F41.9 Anxiety disorder, unspecified; I10 Essential (primary) hypertension
CPT/HCPCS: 36415; 71045; 80048; 80053; 82805; 83735; 83880; 84484; 85025; 85610; 85730; 87633; 93005; 93306; 94640; 96365; 96367; 96375; J0456; J0696; J1650; J2920; J2930; J3475; J7050; J7614; J7620; Q0162

== ENCOUNTER 2018-10-26 11:02 | Outpatient (CLI) | payer MEDICARE, MEDICAID ==
--- NOTE | 2018-10-26 12:45 | RAD ---
CHEST TWO VIEWS: 10/26/2018 PROVIDED CLINICAL HISTORY: Dyspnea. COMPARISON: 01/05/2016 FINDINGS: The cardiac and mediastinal silhouette are unchanged in appearance. Bilateral apical pleural parench ymal opacity, right greater than left, are redemonstrated. The lungs appear otherwise clear. Emphys ematous changes are again seen. No pleural fluid or pneumothorax apparent. IMPRESSION: Stable radiographic appearance of the chest. POS: [facility]
== END 2018-10-26 11:03 | disposition home or self-care (01) ==
LOC: RAD 11:02
PROVIDERS: ATTEND Internal Medicine Critical Care Medicine
DX: R06.00 Dyspnea, unspecified (principal)
CPT/HCPCS: 71046

== ENCOUNTER 2018-10-31 18:40 | Emergency (ER) | payer MEDICARE, MEDICAID ==
[2018-10-31 19:38] LABS: Bilirubin Negative (Negative); Blood, Urine Large (Negative); Clarity CLEAR (Clear); Glucose, Urine (Dipstick) 100 mg/dL (Negative); Leukocyte Negative (Negative); Nitrite Negative (Negative); Protein, Urine (Dipstick) Negative (Neg-Trace); Specific Gravity, Urine 1.012 (1.002-1.036); Urobilinogen 0.2 mg/dL (0.2-1.0); pH, Urine 6.5 (5.0-9.0)
[2018-10-31 19:39] LABS: Bacteria/HPF None Seen HPF (None Seen); Hyaline Casts/LPF 0-3 HYALINE CAST LPF (0-3 Hyaline); RBC/HPF 21-50 HPF (0-3); Squamous Epithelial 0-3 HPF (0-3); WBC/HPF 0-3 HPF (0-3)
--- NOTE | 2018-10-31 19:39 | RAD ---
RADIOGRAPH CHEST 1 VIEW: 10/31/18 at 7:23 p.m. HISTORY: 73-year-old male with dyspnea. FINDINGS: There is hyperinflation of the lungs, consistent with COPD. There is no evidence of air space densit y, pneumothorax, or pulmonary edema. The lateral costophrenic angles are sharp. There is no cardiome annabel. There is scar in the right upper lobe. Right hilar enlargement. No interval change overall sinc e 01/03/16. IMPRESSION: 1) No acute pulmonary findings. 2) Emphysema. 3) Right upper lobe pulmonary scar. jn [] POS: [facility]
[2018-10-31 19:48] LABS: Renal Epithelial 0-3 HPF (0-3)
[2018-10-31 21:10] LABS: ALT (SGPT) 14 U/L (8-55); AST (SGOT) 13 U/L (5-34); Albumin 4.1 g/dL (3.4-4.8); Alkaline Phosphatase 57 U/L (40-150); Anion Gap 13 mmol/L (10-20); BUN (Urea Nitrogen) 14 mg/dL (8.4-25.7); Band 9 % (5-11); Calc. Creatinine Clearance 0 mL/min (70-130); Calcium 10.1 mg/dL (7.8-10.44); Carbon Dioxide 33 mmol/L (23-31); Chloride 93 mmol/L (98-107); Eosinophils 1 % (0-10); Estimated GFR-MDRD 74; Globulin 3.1 g/dL (2.4-3.5); Glucose 89 mg/dL (83-110); Hemoglobin 15.2 g/dL (14.0-18.0); Lymphocytes 4 % (21-51); MDiff Complete? YES; Mean Corpuscular HGB CONC 30.5 g/dL (32.0-36.0); Mean Corpuscular Hemoglobin 27.7 pg (27.0-31.0); Mean Corpuscular Volume 90.9 fL (78.0-98.0); Mean Platelet Volume 8.5 fL (7.4-10.4); Monocytes 7 % (0-10); Neutrophil 79 % (42-75); Platelet Count 192 thou/uL (130-400); Platelet Morphology Comment Appears Adequate; Potassium 4.9 mmol/L (3.5-5.1); Protein, Total 7.2 g/dL (5.8-8.1); RBC Distribution Width 14.7 % (11.5-14.5); Red Blood Cell (RBC) Count 5.48 mill/uL (4.70-6.10); Sodium 134 mmol/L (136-145); White Blood Cell (WBC) Count 16.5 thou/uL (4.8-10.8)
[2018-10-31] MEDS ORDERED: Ciprofloxacin 500 MG TAB ONE (22:04)
== END 2018-10-31 22:34 | disposition home or self-care (01) ==
LOC: ERS 18:40
DX: N41.9 Inflammatory disease of prostate, unspecified (principal); J44.9 Chronic obstructive pulmonary disease, unspecified; Z87.891 Personal history of nicotine dependence; Z79.51 Long term (current) use of inhaled steroids; Z79.899 Other long term (current) drug therapy
CPT/HCPCS: 36415; 51702; 71045; 80053; 81003; 81015; 83605; 85025; 87040; 87086; 93005; 94640; J7620

== ENCOUNTER 2018-12-14 13:10 | Outpatient (CLI) | payer MEDICARE, MEDICAID ==
--- NOTE | 2018-12-14 14:00 | CT ---
CT chest noncontrast low-dose screening HISTORY: Tobacco use. COPD. Dyspnea. Screening. COMPARISON: 10/30/2017 and 04/25/2016. FINDINGS: Lungs remain hyperinflated with scattered bullae and prominent bilateral parenchymal scarri ng. Mild cylindrical bronchiectasis of each lower lobe is similar in appearance to the prior study. Within the lateral aspect of the superior segment left lower lobe, the 2 small areas of somewhat line ar opacity are less masslike on today's study than on previous exams and favored to be related to scarring rather than true nodules. No dominant nodule is evident. No pleural fluid or pneumothorax. Lack of contrast limits evaluation of the soft tissues. No bulky mediastinal adenopathy. Calcificatio n in the coronary arteries and other arterial structures. IMPRESSION: Lung RADS category 1. Negative. Suggest routine follow-up. Atherosclerosis. COPD with severe parenchymal scarring. Overall stable in appearance to the prior exams.
== END 2018-12-14 13:11 | disposition home or self-care (01) ==
LOC: CT 13:10
PROVIDERS: ATTEND Family Medicine
DX: F17.210 Nicotine dependence, cigarettes, uncomplicated (principal); J44.9 Chronic obstructive pulmonary disease, unspecified; I25.10 Atherosclerotic heart disease of native coronary artery without angina pectoris; J98.4 Other disorders of lung; I70.90 Unspecified atherosclerosis
CPT/HCPCS: G0297